=== PATIENT | male | born 1965 | race Caucasian/White ===

== ENCOUNTER 2017-09-26 18:58 | Inpatient (IN) | payer OTHER ==
[2017-09-26] MEDS ORDERED: morphine 4 MG/ML VIAL IV (20:30)
[2017-09-26] MEDS ORDERED: ONDANSETRON 4 MG INJ IV (20:30)
[2017-09-26] MEDS: DEXTROSE 5%-0.45% NACL 1,000 ML IV (21:59)
[2017-09-27] MEDS: DEXTROSE 5%-0.45% NACL 1,000 ML IV ×2 (06:30→09:54)
[2017-09-27 06:46] LABS: ADD MAN DIFF? NO
[2017-09-27 06:49] LABS: BASOPHIL # 0.1 10^3/ul (0.0-0.1); BASOPHILS % 0.9 % (0.0-2.0); EOSINOPHILS # 0.4 10^3/ul (0.0-0.5); EOSINOPHILS % 5.1 % (0.0-7.0); HEMATOCRIT 42.9 % (42.0-52.0); HEMOGLOBIN 14.5 g/dl (14.0-18.0); LYMPHOCYTES # 2.1 10^3/ul (0.8-2.9); LYMPHOCYTES % 30.7 % (15.0-51.0); MEAN CORPUSCULAR HEMOGLOBIN 30.2 pg (29.0-33.0); MEAN CORPUSCULAR HGB CONC 33.8 g/dl (32.0-37.0); MEAN CORPUSCULAR VOLUME 89.4 fl (82.0-101.0); MEAN PLATELET VOLUME 9.9 fl (7.4-10.4); MONOCYTE # 0.6 10^3/ul (0.3-0.9); MONOCYTES % 9.2 % (0.0-11.0); NEUTROPHIL # 3.6 10^3/ul (1.6-7.5); NEUTROPHILS % 53.1 % (39.0-77.0); PLATELET COUNT 238 10^3/UL (140-415); RED CELL DISTRIBUTION WIDTH 13.6 % (11.5-14.5)
[2017-09-27 06:49] LABS: WHITE BLOOD COUNT 6.8 10^3/ul (4.8-10.8)
[2017-09-27] MEDS ORDERED: ROCURONIUM 50 MG INJ (07:00)
[2017-09-27] MEDS ORDERED: NEOSTIGMINE 3 MG/3 ML SYRINGE (07:00)
[2017-09-27] MEDS ORDERED: GLYCOPYRROLATE 1 MG INJ (07:00)
[2017-09-27 07:17] LABS: ALANINE AMINOTRANSFERASE 255 IU/L (13-69); ALBUMIN 3.8 g/dl (3.3-4.9); ALBUMIN/GLOBULIN RATIO 1.11; ALKALINE PHOSPHATASE 167 IU/L (42-121); ANION GAP 14 (8-16); ASPARTATE AMINO TRANSFERASE 227 IU/L (15-46); BILIRUBIN,INDIRECT 0.6 mg/dl (0-1.1); BILIRUBIN,TOTAL 0.6 mg/dl (0.2-1.3); BLOOD UREA NITROGEN 8 mg/dl (7-20); CALCIUM 9.4 mg/dl (8.4-10.2); CARBON DIOXIDE 30 mmol/L (21-31); CHLORIDE 104 mmol/L (97-110); CREATININE 1.04 mg/dl (0.61-1.24); GLUCOSE 106 mg/dl (70-220); LIPASE 347 U/L (23-300); POTASSIUM 3.8 mmol/L (3.5-5.1); SODIUM 144 mmol/L (135-144); TOTAL PROTEIN 7.2 g/dl (6.1-8.1)
[2017-09-27] MEDS ORDERED: morphine 2 MG INJ IV (11:00)
[2017-09-27] MEDS: INDOMETHACIN 50 MG SUPP PR (12:00)
[2017-09-27] MEDS ORDERED: IOHEXOL 300MG/ML 30 ML BTL (15:55)
[2017-09-27] MEDS ORDERED: PHENYLephrine (100 MCG/ML) 5ML SYG (16:17)
[2017-09-27] MEDS ORDERED: FENTAnyl 50 MCG/ML VIAL (17:13)
[2017-09-27] MEDS ORDERED: LIDOCAINE 2% (SDV) 5 ML INJ (17:13)
[2017-09-27] MEDS ORDERED: MIDAZOLAM 1 MG/ML 2 ML INJ (17:13)
[2017-09-27] MEDS ORDERED: PROPOFOL 20 ML (17:13)
[2017-09-27] MEDS ORDERED: FAMOTIDINE 20 MG INJ (17:48)
[2017-09-27] MEDS ORDERED: DEXAMETHASONE 4 MG/ML 1 ML INJ (17:48)
[2017-09-27] MEDS ORDERED: ONDANSETRON 4 MG INJ (17:48)
[2017-09-27] MEDS ORDERED: METOCLOPRAMIDE 10 MG INJ IV (18:30)
[2017-09-27] MEDS ORDERED: OXYCODONE/ACETAMINOPHEN (5/325) TAB PO ×2 (18:30)
[2017-09-27] MEDS ORDERED: FENTAnyl 50 MCG/ML VIAL IV ×2 (18:30)
[2017-09-27] MEDS ORDERED: ONDANSETRON 4 MG INJ IV (18:30)
[2017-09-27] MEDS: INFLUENZA VIRUS VACCINE 0.5 ML SYG IM* (20:30)
[2017-09-28] MEDS: DEXTROSE 5%-0.45% NACL 1,000 ML IV ×3 (02:22→16:04)
[2017-09-28 06:03] LABS: ADD MAN DIFF? NO; HAAIG REFLEX REFLEX FILED
[2017-09-28 06:09] LABS: WHITE BLOOD COUNT 8.8 10^3/ul (4.8-10.8)
[2017-09-28 06:09] LABS: BASOPHILS % 0.3 % (0.0-2.0); EOSINOPHILS % 0.1 % (0.0-7.0); HEMATOCRIT 43.2 % (42.0-52.0); HEMOGLOBIN 14.7 g/dl (14.0-18.0); LYMPHOCYTES # 1.3 10^3/ul (0.8-2.9); LYMPHOCYTES % 14.5 % (15.0-51.0); MEAN CORPUSCULAR HEMOGLOBIN 29.8 pg (29.0-33.0); MEAN CORPUSCULAR VOLUME 87.6 fl (82.0-101.0); MEAN PLATELET VOLUME 10.1 fl (7.4-10.4); MONOCYTE # 0.3 10^3/ul (0.3-0.9); MONOCYTES % 3.6 % (0.0-11.0); NEUTROPHIL # 7.1 10^3/ul (1.6-7.5); NEUTROPHILS % 80.8 % (39.0-77.0); PLATELET COUNT 250 10^3/UL (140-415); RED BLOOD COUNT 4.93 10^6/ul (4.70-6.10); RED CELL DISTRIBUTION WIDTH 13.2 % (11.5-14.5)
[2017-09-28 06:52] LABS: ALANINE AMINOTRANSFERASE 406 IU/L (13-69); ALBUMIN/GLOBULIN RATIO 1.21; ALKALINE PHOSPHATASE 167 IU/L (42-121); ANION GAP 17 (8-16); ASPARTATE AMINO TRANSFERASE 275 IU/L (15-46); BILIRUBIN,INDIRECT 0.5 mg/dl (0-1.1); BILIRUBIN,TOTAL 0.5 mg/dl (0.2-1.3); BLOOD UREA NITROGEN 11 mg/dl (7-20); CALCIUM 9.2 mg/dl (8.4-10.2); CARBON DIOXIDE 23 mmol/L (21-31); CHLORIDE 107 mmol/L (97-110); GLUCOSE 145 mg/dl (70-220); POTASSIUM 4.3 mmol/L (3.5-5.1); SODIUM 143 mmol/L (135-144); TOTAL PROTEIN 7.3 g/dl (6.1-8.1)
[2017-09-28 06:58] LABS: PHOSPHORUS 4.6 mg/dl (2.5-4.9)
[2017-09-28 06:58] LABS: MAGNESIUM 1.9 mg/dl (1.7-2.5)
[2017-09-28 07:13] LABS: HEPATITIS B SURFACE ANTIGEN NEGATIVE (NEGATIVE)
[2017-09-28 07:17] LABS: LIPASE 154 U/L (23-300)
[2017-09-28 07:31] LABS: HEPATITIS B CORE ANTIBODY NEGATIVE (NEGATIVE); HEPATITIS C VIRAL ANTIBODY NEGATIVE (NEGATIVE)
[2017-09-28] MEDS: BARIUM SULF 2% 450 ML BTL (BERRY SMOOTHIE) PO (10:56)
[2017-09-28] MEDS: IOHEXOL 300MG/ML 150 ML BTL (13:39)
[2017-09-28] MEDS: SOD CHLORIDE 0.9% 100 ML (13:40)
[2017-09-28] MEDS: CEPASTAT LOZENGE MT (16:11)
[2017-09-29] MEDS: DEXTROSE 5%-0.45% NACL 1,000 ML IV (02:43)
[2017-09-29 06:48] LABS: ADD MAN DIFF? NO
[2017-09-29 06:52] LABS: BASOPHIL # 0.1 10^3/ul (0.0-0.1); BASOPHILS % 0.7 % (0.0-2.0); EOSINOPHILS # 0.2 10^3/ul (0.0-0.5); EOSINOPHILS % 3.4 % (0.0-7.0); HEMOGLOBIN 14.1 g/dl (14.0-18.0); LYMPHOCYTES # 2.3 10^3/ul (0.8-2.9); LYMPHOCYTES % 34.3 % (15.0-51.0); MEAN CORPUSCULAR HEMOGLOBIN 29.6 pg (29.0-33.0); MEAN CORPUSCULAR HGB CONC 33.6 g/dl (32.0-37.0); MEAN CORPUSCULAR VOLUME 88.1 fl (82.0-101.0); MEAN PLATELET VOLUME 10.1 fl (7.4-10.4); MONOCYTE # 0.5 10^3/ul (0.3-0.9); MONOCYTES % 7.3 % (0.0-11.0); NEUTROPHIL # 3.7 10^3/ul (1.6-7.5); NEUTROPHILS % 53.6 % (39.0-77.0); PLATELET COUNT 216 10^3/UL (140-415); RED BLOOD COUNT 4.77 10^6/ul (4.70-6.10); RED CELL DISTRIBUTION WIDTH 13.5 % (11.5-14.5)
[2017-09-29 06:52] LABS: WHITE BLOOD COUNT 6.8 10^3/ul (4.8-10.8)
[2017-09-29 07:34] LABS: PHOSPHORUS 3.9 mg/dl (2.5-4.9)
[2017-09-29 07:34] LABS: MAGNESIUM 1.9 mg/dl (1.7-2.5)
[2017-09-29 07:37] LABS: ALANINE AMINOTRANSFERASE 415 IU/L (13-69); ALBUMIN 3.7 g/dl (3.3-4.9); ALBUMIN/GLOBULIN RATIO 1.19; ALKALINE PHOSPHATASE 145 IU/L (42-121); ANION GAP 13 (8-16); ASPARTATE AMINO TRANSFERASE 239 IU/L (15-46); BILIRUBIN,INDIRECT 0.7 mg/dl (0-1.1); BILIRUBIN,TOTAL 0.7 mg/dl (0.2-1.3); BLOOD UREA NITROGEN 10 mg/dl (7-20); CALCIUM 8.8 mg/dl (8.4-10.2); CARBON DIOXIDE 25 mmol/L (21-31); CHLORIDE 107 mmol/L (97-110); CREATININE 0.94 mg/dl (0.61-1.24); GLUCOSE 104 mg/dl (70-220); POTASSIUM 3.7 mmol/L (3.5-5.1); SODIUM 141 mmol/L (135-144); TOTAL PROTEIN 6.8 g/dl (6.1-8.1)
[2017-10-01 13:28] LABS: ANA SCREEN NEGATIVE (NEGATIVE); SMOOTH MUSCLE AB SCREEN NEGATIVE (NEGATIVE)
== END 2017-09-29 19:10 | disposition home or self-care (01) | DRG 444 ==
LOC: PP2 18:58
PROC: 0F9C8ZZ Drainage of Ampulla of Vater, Via Natural or Artificial Opening Endoscopic (ICD-10-PCS; principal; 2017-09-27 17:00)
DX: K80.10 Calculus of gallbladder with chronic cholecystitis without obstruction (principal); K85.10 Biliary acute pancreatitis without necrosis or infection
CPT/HCPCS: 74177; 74330; 76705; 80053; 83690; 83735; 84100; 85025; 86038; 86255; 86704; 86709; 86803; 87081; 87340; 90686

== ENCOUNTER 2017-10-03 15:48 | Outpatient (CLI) | payer OTHER | END 2017-10-03 16:14 | disposition home or self-care (01) | LOC: DCC 15:48 | DX: K85.10 Biliary acute pancreatitis without necrosis or infection (principal) | CPT/HCPCS: G0463 ==

== ENCOUNTER 2017-10-24 14:17 | Outpatient (CLI) | payer OTHER | END 2017-10-24 15:56 | disposition home or self-care (01) | LOC: DCC 14:17 | DX: K85.10 Biliary acute pancreatitis without necrosis or infection (principal); R79.89 Other specified abnormal findings of blood chemistry | CPT/HCPCS: G0463 ==